=== PATIENT | male | born 1980 | race Caucasian/White ===

== ENCOUNTER 2025-03-23 12:42 | Emergency (ER) | payer MEDICAID, SELFPAY ==
--- NOTE | 2025-03-23 12:46 | EKG_ITS ---
[facility] Test Date: 2025-03-23 Pat Name: PATIENCE RIVERA Department: Room: - Gender: Male Eap Clinician: : 1980 Requested By: Courtney Gutierrez Order Number: [id number] Reading MD: Courtney Gutierrez Measurements Intervals [place] Rate: 76 P: 22 MO: 137 QRS: 38 QRSD: 105 T: 35 QT: 360 QTc: 407 Interpretive Statements SINUS RHYTHM NONSPECIFIC T-WAVE ABNORMALITY No previous ECG available for comparison /store/S0/[id number].pdf
--- NOTE | 2025-03-23 13:04 | XR_ITS ---
EXAMINATION: PA chest single view TECHNIQUE: Upright PA chest single view Date and time: March 23, 2025, 1312 hours INDICATIONS: Chest pain 6 months. FINDINGS: Normal heart size Lungs are clear. The osseous rectors are intact IMPRESSION: No active disease
--- NOTE | 2025-03-23 13:04 | EDNOTE_ITS ---
ED General RME/HPI General Chief complaint: Chest Pain Stated complaint: LEFT SIDED CHEST PAIN Time Seen by Provider: 03/23/25 13:03 Arrival date/time: 03/23/25 12:42 CC: Chest pain HPI onset last night, left anterior reproducible palpation localized in the left anterior chest in the center. Increased pain with deep inhalation or cough. No prior history of similar events denies fever chills shortness of breath or difficulty breathing. Related Data Previous Rx's ?Medication ?Instructions ?Recorded IBU 800 mg tablet (ibuprofen) 800 mg PO Q6H PRN pain # 30 tabs 10/12/18 cephalexin 500 mg capsule (Keflex) 500 mg PO BID #10 c aps 10/12/18 Allergies Allergy/AdvReac Type Severity Reaction Status Date / Time No Known Allergies Allergy Verified 08/20/18 18:49 Review of Systems Review of Systems Narrative Review of Systems: GEN: No fever, no chills, no weight loss EYES: No discharge, no visual changes, no pain HEENT: No ear pain, no congestion, no sore throat PULM: No shortness of breath, no cough, no congestion CV: + chest pain, no dyspnea on exertion, no palpitations GI: No nausea, no vomiting, no diarrhea, no pain, no constipation : No frequency, no urgency, no dysuria MUSC/SKEL: No joint pain, no back pain SKIN: No rash PSYCH: No hallucinations, no depression HEME/LYMPH: No easy bleeding or bruising tendencies NEURO: No weakness, no headache Past Medical History Past Medical History CARDIAC: Negative Congestive Heart Failure RESPIRATORY: Negative Chronic Obstructive Pulmonary Disease (COPD) GENITOURINARY: Negative Renal Disease ENDOCRINE: Negative Diabetes Mellitus Type 1 or Diabetes Mellitus Type 2 Social History SMOKING STATUS: Former smoker ED Exam Narrative Physical exam: [General: Not in any acute distress Head normocephalic HEENT: Within acceptable limits Neck is supple nontender Chest equal chest rise costosternal border left side pain with palpation site- specific. No right sided pain with palpation. Respiratory: Clear to auscultation no wheezes crackles or rubs CV: Rate rhythm is regular no murmurs rubs or clicks Abdomen is soft nontender no masses positive bowel sounds all 4 quadrants Back: No CVA tenderness no spinous process tenderness from cervical spine thoracic and lumbar spine Skin: Intact no petechiae rash induration ulceration or crepitus Extremities: Moving all extremity against resistance cap refill less than 2 seconds neurosensory intact Neuro: Awake alert oriented x3 Glascow coma 15 no focal deficits] Course Quality Measures none Orders Category Date Time Status EKG (ED ONLY) *Do not use* NOW Care 03/23/25 12:46 Completed EKG (ED Only) Stat Exams 03/23/25 12:46 Draft XR chest 1V Stat Exams 03/23/25 13:04 Completed Troponin I Stat Lab 03/23/25 13:14 Completed Vital Signs Vital signs: Vital Signs Temperature 98.7 F 03/23/25 13:09 Pulse Rate 81 03/23/25 13:09 Respiratory Rate 18 03/23/25 13:09 Blood Pressure 151/100 H 03/23/25 13:09 Pulse Oximetry (%) 95 03/23/25 13:09 Oxygen Delivery Method Room Air 03/23/25 13:09 Discharge Plan Plan Patient Disposition: HOME (Self Care) Patient condition on transfer: Stable Prescriptions/Referrals Prescriptions/Med Rec: No Action ibuprofen [IBU] 800 mg tablet 800 mg PO Q6H PRN (Reason: pain) Qty: 30 0RF cephalexin [Keflex] 500 mg capsule 500 mg PO BID Qty: 10 0RF Referrals: Mark([facility]),LUCY Valle [Primary Care Provider] - In 1 week Problem List Clinical Impression: Chest wall pain Patient/Caregiver Discharge Instructions Other Activity Instructions:: Your chest x-ray EKG and blood work are all negative you are not having a heart attack and you have no pneumonia. This is most likely chest wall pain. Continue to take ibuprofen or Tylenol for relief. Follow-up with your primary care doctor. Education Materials: ED Chest Pain, Noncardiac Print Language: Syriac Stand Alone Forms: Sandra Award Info., Work/School Release, Patient Portal Info Letter APOLLO/AIME Supervising Physician YOLANDA Supervising Physician: Thee ALEJANDRE Clinical Information Provided by: patient Medical Records reviewed [facility] Meds/Rx considered, not ordered None Labs/Rad/Tests considered, not ordered None Chronic Illness/Social Conditions which may negatively complicate care or outcome(s)-explain: None or not applicable EKG Interpretation EKG #1: EKG Interpretation: EKG performed at 1301 shows a ventricular rate of 87 VT interval 146 QRS 102 QTc of 437 this normal sinus rhythm. Labs Labs: interpreted by me Lab(s) Interpretation(s): Troponin is negative Imaging Imaging interpretation: interpreted by me Imaging Interpretation(s): Chest x-ray is negative Medication Administration(s) none Diagnosis Differential Diagnosis ED Complaint MDM: ACS GA chest wall pain
[2025-03-23 13:09] VITALS: BP 151/100; PULSE 81; RESP 18; TEMP 37.1; O2SAT 95; BMI 33.3
[2025-03-23 13:49] LABS: Troponin I < 0.020 ng/mL (0.0-0.045)
== END 2025-03-23 14:38 | disposition home or self-care (01) ==
PROVIDERS: Registered Nurse General Practice; Emergency Provider Emergency Medicine; PCP Nurse Practitioner Family
DX: R07.89 Other chest pain (principal); R94.31 Abnormal electrocardiogram [ECG] [EKG]
CPT/HCPCS: 36415; 71045; 84484; 93005; 99283

== ENCOUNTER 2025-03-27 12:31 | Emergency (ER) | payer MEDICAID, SELFPAY ==
[2025-03-27 12:31] VITALS: BMI 31.4
[2025-03-27 12:52] VITALS: BP 135/88; PULSE 77; RESP 18; TEMP 36.6; O2SAT 98
--- NOTE | 2025-03-27 13:08 | XR_ITS ---
Examination: CT brain head without contrast. 2-D sagittal coronal reconstructions Date and time of exam: March 27, 2025, 1343 hours INDICATIONS: Injury to the head today, head pain CTDI: vol (mGy): 55 DLP: (mGycm): 1116 Technique: Multiple CT axial sections of the brain have been obtained, 5 mm slice thickness. Contrast has not been administered. 2-D sagittal, coronal reconstructions have been obtained Low dose protocols were performed. One or more of the following dose reduction techniques were used; automated exposure control, adjustment of the mA and/or KV according to patient size, use of iterative reconstruction technique. Findings: No significant ventricular enlargement. Intra-axial or extra-axial hemorrhage density is not seen. No mass effect or midline shift Basal cisterns are not remarkable. Fourth ventricle is midline. Cranial vault intact. Impression: Negative for acute hemorrhage, mass effect or midline shift
--- NOTE | 2025-03-27 13:08 | XR_ITS ---
Examination: Ribs, right, with PA chest, 5 views Technique: Chest PA, RIBS AP, RPO, LPO, AP coned lower ribs 5 views Exam date and time: March 27, 2025, 1324 hours INDICATIONS: Ground-level fall today with injury to the right chest, right rib pain Findings: Normal heart size No pneumothorax No acute rib fractures IMPRESSION: No pneumothorax pulmonary contusion or hemothorax No acute rib fractures
--- NOTE | 2025-03-27 13:09 | EDNOTE_ITS ---
ED Fall Injury RME/HPI General Chief Complaint: Fall Stated Complaint: FALL HEAD PAIN Time Seen by Provider: 03/27/25 12:33 Arrival date/time: 03/27/25 12:31 44-year-old male patient with no past medical history, came in for evaluation regarding ground-level fall patient sustained contusion abrasion to the forehead, patient fell backward and an ax hit his forehead incident happened this morning patient sustained pain to the right rib cage, described as dull ache severity moderate patient is ambulatory no LOC no neck pain tetanus vaccination is unknown. Related Data Previous Rx's ?Medication ?Instructions ?Recorded IBU 800 mg tablet (ibuprofen) 800 mg PO Q6H PRN pain # 30 tabs 10/12/18 cephalexin 500 mg capsule (Keflex) 500 mg PO BID #10 c aps 10/12/18 ibuprofen 800 mg tablet 800 mg PO Q8H PRN pain #30 t abs 03/27/25 Allergies Allergy/AdvReac Type Severity Reaction Status Date / Time No Known Allergies Allergy Verified 08/20/18 18:49 Review of Systems Review of Systems Narrative Review of Systems: Review of system reviewed and within normal limits except mentioned in HPI ED Exam Narrative Physical exam: VITAL SIGNS: Reviewed. GENERAL APPEARANCE: Alert and interactive, follows commands, no acute distress, HEAD AND FACE: Abrasion to the forehead ENT: PERRL, pink conjunctivitis, eyelid no trauma, Mucous membrane moist. NECK: Supple, nontender, no nuchal rigidity. CHEST: Right posterior rib cage tenderness tenderness, no crepitus, no paradoxical movement, no retractions. LUNGS: Clear, well ventilated, symmetric, no rales, no wheezing, no ronchi, no stridor, good breath sounds bilaterally. HEART: Regular rate, regular rhythm, no murmur, no gallops. ABDOMEN: Soft, positive bowel sounds, nondistended, no guarding, nontender, no rebound, no masses, RECTAL: Deferred. GENITAL: Deferred. NEUROLOGICAL: Gross motor function intact sensory function intact, Appropriate for age. MUSCULOSKELETAL: low back nontender, full range of motion. EXTREMITIES: Nontender, full range of motion. SKIN: Color pink, dry, no rash, no lacerations, no abrasions, no contusions. LYMPHATICS: Deferred. Course Quality Measures none Orders Category Date Time Status CT head/brain wo con Stat Exams 03/27/25 13:08 Completed XR ribs RT min 3V w CXR1V Stat Exams 03/27/25 13:08 Completed Acetaminophen Tab [Tylenol ES Tab] Med 03/27/25 13:08 Discontinued 1,000 mg PO X1 ONE TET,DIP/PERT AC (Adult)-Tdap [Boostrix Adult (Tdap) Med 03/27/25 13:08 Discontinued Vacc] 0.5 ml IMI .ONCE ONE Vital Signs Vital signs: Vital Signs Temperature 97.9 F 03/27/25 12:52 Pulse Rate 77 03/27/25 12:52 Respiratory Rate 18 03/27/25 12:52 Blood Pressure 135/88 H 03/27/25 12:52 Pulse Oximetry (%) 98 03/27/25 12:52 Oxygen Delivery Method Room Air 03/27/25 12:52 Fall MDM Narrative MDM Narrative:: 44-year-old male patient with no past medical history, came in for evaluation regarding ground-level fall patient sustained contusion abrasion to the forehead, patient fell backward and an ax hit his forehead incident happened this morning patient sustained pain to the right rib cage, described as dull ache severity moderate patient is ambulatory no LOC no neck pain tetanus vaccination is unknown. CT scan of the head came back unremarkable. X-ray of the rib on the right with 1 view chest all came back normal also. Results discussed with the patient. Patient stable for discharge home patient was given Tylenol and Boostrix Patient data External records reviewed:: None Clinical information provided by:: none Social determinants that could affect healthcare access:: none Patient has the following chronic illnesses:: None How is presenting disease/condition affected by chronic disease/condition?: no chronic disease Evaluation data The following diagnostics were reviewed and interpreted by me:: lab results and radiology exam(s) Lab and/or radiology exams considered but not ordered:: None Interpretation Summary: See above Medications / Prescriptions Medications or Prescriptions considered but not ordered:: None Medication administrations:: Medication Administration History Discontinued Medications Acetaminophen (Acetaminophen 500 Mg Tablet) 1,000 mg PO X1 ONE Stop: 03/27/25 13:09 Last Admin: 03/27/25 13:24 Dose: 1,000 mg Documented By: BD Diphtheria/Tetanus/Acell Pertussis (Diphth,Pertuss(Acell),Tet Vac 0.5 Ml Syr- Adult) 0.5 ml IMi .ONCE ONE Stop: 03/27/25 13:09 Last Admin: 03/27/25 13:23 Dose: 0.5 ml Documented By: BD Tylenol, Boostrix Consultations Consultation(s) initiated? (list below): No Diagnosis Fall Differential Diagnosis: other (Forehead contusion, chest wall contusion fall, forehead abrasion) Most likely diagnosis given after review of the tests above:: Forehead contusion, chest wall contusion fall, forehead abrasion Admission Indicated Admission indicated?: not indicated Admission Request Was there a request for admission?: No Disposition Plan Disposition Plan: Discharge Discharge Attestation Discharge Attestation: The patient and all family members were given an opportunity to ask questions and understood the discharge instructions. Discharge instructions specifically effects, indications for sooner follow up or return to the emergency department, and the expected course of current diagnosis. Patient condition: Stable Discharge Plan Plan Patient Disposition: HOME (Self Care) Discharge Disposition comment: Stable Prescriptions/Referrals Prescriptions/Med Rec: New ibuprofen 800 mg tablet 800 mg PO Q8H PRN (Reason: pain) Qty: 30 0RF No Action ibuprofen [IBU] 800 mg tablet 800 mg PO Q6H PRN (Reason: pain) Qty: 30 0RF cephalexin [Keflex] 500 mg capsule 500 mg PO BID Qty: 10 0RF Referrals: Mark([facility])Leonard NP [Primary Care Provider] - In 1 week Problem List Clinical Impression: Contusion of forehead, Chest wall contusion, Abrasion of forehead Patient/Caregiver Discharge Instructions Discharge Activity: activity as tolerated Education Materials: Bruises (Contusions) Additional Instructions: Thank you for the opportunity for serving you today. You are stable for discharged . You are advised to: Follow-up with your PCP in 1 to 2 days Return to ED for worsening of symptoms Increase oral fluids Take medication as prescribed Apply [id number] triple antibiotic daily as needed for your abrasion on the forehead Print Language: Upper Sorbian Stand Alone Forms: Sandra Award Info., Patient Portal Info Letter APOLLO/AIME Supervising Physician YOLANDA Supervising Physician: MD Adolfo
[2025-03-27] MEDS: DIPHTH,PERTUSS(ACELL),TET VAC 0.5 ML SYR- ADULT IMi (13:23)
[2025-03-27] MEDS: ACETAMINOPHEN 500 MG TABLET 1000 MG PO (13:24)
[2025-03-27 15:07] VITALS: BP 146/94; PULSE 82; RESP 16; TEMP 36.8; O2SAT 97
== END 2025-03-27 15:08 | disposition home or self-care (01) ==
PROVIDERS: Emergency Provider Emergency Medicine; PCP Nurse Practitioner Family
DX: S00.83XA Contusion of other part of head, initial encounter (principal); S00.81XA Abrasion of other part of head, initial encounter; S20.211A Contusion of right front wall of thorax, initial encounter; W18.30XA Fall on same level, unspecified, initial encounter; Z23 Encounter for immunization
CPT/HCPCS: 70450; 71101; 90471; 90715; 99283; A9270